=== PATIENT | female | born 1980 | race American Indian/Alaskan Native ===

== ENCOUNTER 2018-03-29 01:33 | Emergency (ER) | payer SELFPAY ==
[2018-03-29] MEDS ORDERED: PROVENTIL IH ONE (02:02)
[2018-03-29 03:32] LABS: Basophils # (Auto) 0.1 K/mm3 (0.0-0.1); Basophils % (Auto) 0.6 % (0.0-1.8); Eosinophils % (Auto) 0.4 % (0.0-4.3); Hematocrit 36.8 % (30.3-42.9); Hemoglobin 12.2 gm/dl (10.1-14.3); Lymphocytes % (Auto) 26.7 % (13.4-35.0); Mean Corpuscular HGB Conc 33 % (30-34); Mean Corpuscular Hemoglobin 27 pg (28-32); Mean Corpuscular Volume 82 fl (79-97); Monocytes # (Auto) 0.6 K/mm3 (0.0-0.8); Monocytes % (Auto) 5.5 % (0.0-7.3); Platelet Count 404 K/mm3 (140-440); Red Blood Count 4.48 M/mm3 (3.65-5.03); Red Cell Distribution Width 14.1 % (13.2-15.2)
[2018-03-29 03:46] LABS: BUN/Creatinine Ratio 14; Blood Urea Nitrogen 11 mg/dL (7-17); Hemolysis Index 20
[2018-03-29] MEDS ORDERED: DELTASONE PO ONE (05:03)
--- NOTE | 2018-03-29 05:09 | Emergency Department Report ---
ED Shortness of Breath HPI - General Chief Complaint: Dyspnea/Respdistress Stated Complaint: SOB,ASTHMA Time Seen by Provider: 03/29/18 05:03 Source: patient Mode of arrival: Ambulatory Limitations: No Limitations - History of Present Illness Initial Comments: Mrs. Gale is a very pleasant 38-year-old female with history of mild intermittentet asthma. She has only required 5 total ED visits within the last 28 years since she was diagnosed with childhood asthma at age of 10. She knows her triggers which include stress, change of weather and seasonal allergies. For the last 3 years she's been able to control her asthma with homeopathic methods mostly steam exposure. She felt chest tightness and shortness of breath. She started to have lightheadedness. She had a near syncope episode related to the shortness of breath today. After receiving bronchodilator therapy she feels much better. Heart rate has improved. MD Complaint: shortness of breath -: days(s) (several) Severity: moderate Quality: other (central chest tightness) Improves With: bronchodilators Known History Of: asthma - Related Data Previous Rx's Medication Instructions Recorded Last Taken Type ALBUTEROL Inhaler [ProAir HFA 2 puff IH QID PRN #1 inhalation 03/29/18 Unknown Rx Inhaler] predniSONE [Deltasone] 3 tab PO QDAY 3 Days #9 tab 03/29/18 Unknown Rx Allergies Allergy/AdvReac Type Severity Reaction Status Date / Time Penicillins Allergy Anaphylaxis Verified 03/29/18 02:30 ED Review of Systems ROS: Stated complaint: SOB,ASTHMA Other details as noted in HPI Comment: All other systems reviewed and negative Constitutional: denies: fever, malaise Respiratory: shortness of breath Cardiovascular: chest pain, palpitations ED Past Medical Hx - Past Medical History Previous Medical History?: Yes Hx Hypertension: Yes Hx Asthma: Yes (stopped inhalers 2 years doing homeopathic) - Surgical History Past Surgical History?: Yes Hx Cholecystectomy: Yes (1999) Additional Surgical History: Adnoids removed 1998, Tubal ligation 2004, partial hysterectomy 2007, Tonsillectomy 2013 - Social History Smoking Status: Former Smoker Substance Use Type: None - Medications Home Medications: Home Medications Medication Instructions Recorded Confirmed Last Taken Type ALBUTEROL Inhaler [ProAir HFA 2 puff IH QID PRN #1 inhalation 03/29/18 Unknown Rx Inhaler] predniSONE [Deltasone] 3 tab PO QDAY 3 Days #9 tab 03/29/18 Unknown Rx ED Physical Exam - General Limitations: No Limitations General appearance: alert, in no apparent distress - Head Head exam: Present: atraumatic, normocephalic - Eye Eye exam: Present: normal appearance - ENT ENT exam: Present: mucous membranes moist - Neck Neck exam: Present: normal inspection - Respiratory Respiratory exam: Present: normal lung sounds bilaterally. Absent: respiratory distress, wheezes, rales, rhonchi - Cardiovascular Cardiovascular Exam: Present: regular rate, normal rhythm. Absent: systolic murmur, diastolic murmur, rubs, gallop - GI/Abdominal GI/Abdominal exam: Present: soft, normal bowel sounds. Absent: distended, tenderness, guarding, rebound - Extremities Exam Extremities exam: Present: normal inspection - Back Exam Back exam: Present: normal inspection - Neurological Exam Neurological exam: Present: alert, oriented X3 - Psychiatric Psychiatric exam: Present: normal affect, normal mood - Skin Skin exam: Present: warm, dry, intact, normal color. Absent: rash ED Course Vital Signs 03/29/18 03/29/18 03/29/18 01:33 02:35 03:38 Temperature 98.3 F 98.3 F 98.7 F Pulse Rate 107 H 109 H 103 H Respiratory 20 20 14 Rate Blood Pressure 144/93 144/93 Blood Pressure 149/79 [Left] O2 Sat by Pulse 100 100 99 Oximetry ED Medical Decision Making - Lab Data Result diagrams: 03/29/18 02:58 03/29/18 02:58 Abnormal Lab Results 03/29/18 03/29/18 02:58 02:58 WBC 11.1 H RBC 4.48 Hgb 12.2 Hct 36.8 MCV 82 MCH 27 L MCHC 33 RDW 14.1 Plt Count 404 Lymph % (Auto) 26.7 [place] % (Auto) 5.5 Eos % (Auto) 0.4 Baso % (Auto) 0.6 Lymph # 3.0 [place] # 0.6 Eos # 0.0 Baso # 0.1 Seg Neutrophils % 66.8 Seg Neutrophils # 7.4 Sodium 138 Potassium 3.1 L Chloride 103.9 Carbon Dioxide 20 L Anion Gap 17 BUN 11 Creatinine 0.8 Estimated GFR > 60 BUN/Creatinine Ratio 14 Glucose 127 H Calcium 9.0 Vital Signs - 24 hr 03/29/18 03/29/18 03/29/18 01:33 02:35 03:38 Temperature 98.3 F 98.3 F 98.7 F Pulse Rate 107 H 109 H 103 H Respiratory 20 20 14 Rate Blood Pressure 144/93 144/93 Blood Pressure 149/79 [Left] O2 Sat by Pulse 100 100 99 Oximetry - Medical Decision Making Ms. Gale is 38 yo female with hx of exacerbation mild intermittent asthma. she feels much better after treatment. On my examination, HR 85 bpm on monitor. She is PERC negative for PE. Chest pain is atypical for ACS. dc'd home with prescription for prednisone and albuterol MDI Critical care attestation.: If time is entered above; I have spent that time in minutes in the direct care of this critically ill patient, excluding procedure time. ED Disposition Clinical Impression: Acute asthma exacerbation Disposition: DC-01 TO HOME OR SELFCARE Is pt being admited?: No Does the pt Need Aspirin: No Condition: Stable Instructions: Asthma (ED) Prescriptions: ALBUTEROL Inhaler [ProAir HFA Inhaler] 2 puff IH QID PRN #1 inhalation PRN Reason: Shortness Of Breath predniSONE [Deltasone] 3 tab PO QDAY 3 Days #9 tab Referrals: [facility] [Outside] - 3-5 Days Time of Disposition: 05:09
[2018-03-29 05:22] VITALS: BP 130/70
--- NOTE | 2018-04-04 15:06 | XRay Report ---
FINAL REPORT EXAM: XRAY CHEST 2 VIEWS HISTORY: s o b TECHNIQUE: PA and lateral views of the chest were submitted. FINDINGS: The heart size and mediastinum appear normal. The lungs are clear. Pleural fluid is not seen. The skeletal structures reveal a chronic fracture deformity in the left humeral neck. IMPRESSION: No active chest disease.
== END 2018-03-29 05:22 | disposition home or self-care (01) ==
LOC: ED 01:33
DX: J45.901 Unspecified asthma with (acute) exacerbation (principal); I10 Essential (primary) hypertension
CPT/HCPCS: 36415; 71046; 80048; 85025; 93005; 93010; 99284; J7512

== ENCOUNTER 2018-08-22 12:43 | Outpatient (CLI) | payer OTHER ==
--- NOTE | 2018-08-22 15:36 | Mammography Report ---
BILATERAL DIGITAL SCREENING MAMMOGRAM with CAD: 08/22/18 12:43:00 CLINICAL: Routine screening. COMPARISON:03/29/18 FINDINGS: The breasts are almost entirely fatty. No mass, architectural distortion or suspicious calcifications. IMPRESSION: No mammographic evidence of malignancy. BI-RADS CATEGORY: 1 - - Negative RECOMMENDATION: Routine mammographic screening in one year. COMMENT: Patient follow-up letters are generated by our [employer] application.
== END 2018-08-22 12:44 | disposition home or self-care (01) ==
LOC: MAMMO 12:43
PROVIDERS: ATTEND Internal Medicine
DX: Z12.31 Encounter for screening mammogram for malignant neoplasm of breast (principal); I10 Essential (primary) hypertension; J45.909 Unspecified asthma, uncomplicated; Z90.49 Acquired absence of other specified parts of digestive tract; Z90.710 Acquired absence of both cervix and uterus
CPT/HCPCS: 77067